=== PATIENT | female | born 1950 | race Caucasian/White ===

== ENCOUNTER 2017-11-25 14:33 | Emergency (ER) | payer BC ==
[2018-01-16] MEDS ORDERED: ROBAXIN-750750 MG PO (13:46)
[2018-01-16] MEDS ORDERED: GABAPENTIN100 MG PO (13:46)
[2018-01-16] MEDS ORDERED: GLUCOPHAGE1000 MG PO (13:46)
[2018-01-16] MEDS ORDERED: CARDIZEM CD120 MG PO (13:47)
[2018-01-16] MEDS ORDERED: LEVEMIR INJ FLE (13:47)
[2018-01-16] MEDS ORDERED: TRICOR145 MG PO (13:47)
[2018-01-16] MEDS ORDERED: HUMALOG MIX 75/10 ML (13:49)
[2018-01-16] MEDS ORDERED: PRINZIDE 20/12.1 TA1 PO (13:50)
[2018-01-17 06:27] VITALS: BMI 38.7
== END 2017-11-25 17:35 | disposition home or self-care (01) ==
LOC: D.ER 14:33
DX: M54.30 Sciatica, unspecified side (principal); M62.838 Other muscle spasm; T14.8XXA Other injury of unspecified body region, initial encounter; X58.XXXA Exposure to other specified factors, initial encounter; Y93.89 Activity, other specified; Y92.89 Other specified places as the place of occurrence of the external cause; E11.9 Type 2 diabetes mellitus without complications; I10 Essential (primary) hypertension

== ENCOUNTER → 2017-12-25 08:51 | Outpatient (CLI) | payer BC ==
[~2017-12-25 08:51] MED LIST: CARDIZEM CD120 MG PO; GABAPENTIN100 MG PO; GLUCOPHAGE1000 MG PO; HUMALOG MIX 75/10 ML; LEVEMIR INJ FLE; PRINZIDE 20/12.1 TA1 PO; ROBAXIN-750750 MG PO; TRICOR145 MG PO
[2018-01-17 06:27] VITALS: BMI 38.7
== END | disposition home or self-care (01) ==
LOC: D.MRI 08:51
DX: M54.32 Sciatica, left side (principal); M54.31 Sciatica, right side

== ENCOUNTER 2018-01-17 05:33 | Day surgery (SDC) | payer BC ==
[~2018-01-17] VITALS: Ht 152.4 cm; Wt 89.8 kg
--- NOTE | ~2018-01-17 | OP ---
PATIENT NAME: LAZARA SALEH MEDICAL RECORD: [id number] :54 LOCATION:[facility] ADMISSION DATE: SURGEON: GLEN LOYA MD DATE OF OPERATION: 01/17/2018 PREOPERATIVE DIAGNOSES: Lumbar spinal stenosis and foraminal stenosis, L4-L5, right with a right L5 radiculopathy. POSTOPERATIVE DIAGNOSES: Lumbar spinal stenosis and foraminal stenosis, L4-L5, right with a right L5 radiculopathy. PROCEDURE: Lumbar laminectomy, medial facetectomy and foraminotomy, L4-L5 right with METRx retractor. DESCRIPTION AND TECHNIQUE: After induction of general endotracheal anesthesia, the patient was rolled prone on the Nagi frame. Lumbar spine was prepped and draped in the usual sterile fashion. Fluoroscopic x-ray and spinal needle localized the L4-L5 interspace on the right side. A stab incision was created with #11 blade. Series of dilators were used to advance the METRx retractor to the L4-L5 interspace on the right side. Levels were confirmed with fluoroscopic x-ray. A microscope and Midas Jacobo drill were to perform a laminectomy, medial facetectomy, and foraminotomy at L4-L5 on the right. Hypertrophied ligamentum flavum was removed with Cloward rongeurs. The L5 nerve root appeared to be decompressed well. Disc space was inspected and additional disc material was removed as well to completely decompress the L5 nerve root on the right side. Meticulous hemostasis was maintained throughout the wound and the wound was irrigated with copious amounts of Ancef irrigant solution. The fascia was closed with 2-0 Vicryl suture, the subdermal layer was closed with 3-0 Vicryl suture. The skin was closed with salazar. A sterile dressing was applied to the wound. The patient was awakened in good condition and taken to recovery. All counts were reported as correct. Estimated blood loss was minimal. TRANSINT:[id number] Voice Confirmation ID: [id number] DOCUMENT ID: [id number] GLEN LOYA MD at 1428 CC: [id number] DICTATION DATE: 02/03/18 06 LEAD ASSISTANT MANAGER: 02/03/18 1210 [facility] 01/17/18 [place] [address]
[2018-01-17 06:03] LABS: HEMATOCRIT 40.6 % (36.0-48.0); HEMOGLOBIN 13.5 g/dL (12-16); MCH 32.2 pg (26.0-34.0); MCHC 33.3 g/dL (31.0-37.0); MCV 96.9 fL (80.0-100.0); MEAN PLATELET VOLUME 9.8 fL (7.4-10.4); RBC 4.19 10x6/uL (4.00-5.40); RDW 13.3 % (11.5-14.5); WBC 6.1 10x3/uL (4.8-10.8)
[2018-01-17 06:27] VITALS: BP 125/64; Ht 152.4 cm; Wt 89.8 kg
[2018-01-17 06:31] LABS: ANION GAP 15.1 mmol/L (8-16); CALCIUM 9.1 mg/dL (8.5-10.1); CARBON DIOXIDE 23.8 mmol/L (21.0-32.0); CREATININE - SERUM 0.9 mg/dL (0.6-1.3); POTASSIUM - SERUM 3.9 mmol/L (3.5-5.1)
== END 2018-01-17 12:05 | disposition home or self-care (01) ==
LOC: D.OPS 05:33
PROVIDERS: Anesthesiology
DX: M51.16 Intervertebral disc disorders with radiculopathy, lumbar region (principal); I10 Essential (primary) hypertension; E66.9 Obesity, unspecified; Z68.38 Body mass index [BMI] 38.0-38.9, adult; E11.9 Type 2 diabetes mellitus without complications; Z01.812 Encounter for preprocedural laboratory examination

== ENCOUNTER → 2018-04-30 18:06 | Outpatient (CLI) | payer BC ==
[2018-01-17 06:27] VITALS: BMI 38.7
== END | disposition home or self-care (01) ==
LOC: D.MAMMO 04-23 08:00
DX: Z12.31 Encounter for screening mammogram for malignant neoplasm of breast (principal)

== ENCOUNTER 2020-12-26 09:45 | Outpatient (CLI) | payer MEDICARE ==
[2018-01-17 06:27] VITALS: BMI 38.7
== END 2020-12-26 23:59 | disposition home or self-care (01) ==
LOC: D.MAMMO 09:45
PROVIDERS: ATTEND Family Medicine
DX: Z12.31 Encounter for screening mammogram for malignant neoplasm of breast (principal)